=== PATIENT | female | born 1985 | race Caucasian/White ===

== ENCOUNTER 2018-07-13 12:06 | Emergency (ER) | payer OTHER, MEDICAID ==
[~2018-07-13] VITALS: Ht 165.1 cm; Wt 72.6 kg
[~2018-07-13 12:06] MED LIST: AUGMENTIN 875875 MG PO; BACTRIM 400-801 EACH; BACTRIM DS TAB1 EACH PO; BENTYL20 MG PO; CLONAZEPAM; COMPAZINE10 M1 PO; DARVOCET-N 1001 EACH PO; FLEXERIL PO; FLONASE 0.05%50 MCG NS; IBUPROFEN 800800 MG PO; IRON325; LORTAB 5 MG/5001 TA1 PO; MEDROL DOSPAK21 TAB PO; MYLICON DR40 MG/0.1 PO; NORCO 5-325 TA1 EACH PO; NORFLEX100 MG PO; PENICILLIN VK500 M1 PO; PHENERGAN 25 MG25 M1 PO; PREDNISONE 10 M10 MG PO; PRENATAL; PREVACID15 MG PO; ULTRAM 50MG TAB50 MG PO; VIBRAMYCIN 100100 MG PO; ZANTAC
[2018-07-13 12:53] LABS: ABSOLUTE EOSINOPHILS 0.1 thou/uL (0.0-0.7); ABSOLUTE LYMPHOCYTES 1.3 thou/uL (0.8-5.3); ABSOLUTE MONOCYTES 0.3 thou/uL (0.0-1.2); ABSOLUTE NEUTROPHILS 3.2 thou/uL (1.6-8.1); BASOPHILS 0.7 %; EOSINOPHILS 2.2 %; HEMATOCRIT 37.2 % (37.0-47.0); HEMOGLOBIN 12.7 gm/dL (12.0-15.0); LYMPHOCYTES 27.3 %; MCH 30.7 pg (26.0-34.0); MCHC 34.1 g/dL (28.0-37.0); MONOCYTES 5.2 %; MPV 7.7 fl. (7.2-11.1); NUCLEATED RBCS 0 /100WBC; PLATELET COUNT* 233 thou/uL (150-400); POLYS 64.6 %; RBC 4.13 mil/uL (4.20-5.00); RDW-CV 12.8 % (10.5-14.5); WBC 4.9 thou/uL (4.0-11.0)
[2018-07-13 13:00] LABS: CALCIUM 8.9 mg/dL (8.5-10.1); CREATININE 0.7 mg/dL (0.6-1.3); POTASSIUM 3.4 mmol/L (3.5-5.1)
[2018-07-13 13:04] LABS: APTT 28.3 Seconds (25.0-31.3); PROTIME 10.7 Seconds (9.20-11.50)
[2018-07-13 13:05] LABS: ALBUMIN 3.6 g/dL (3.4-5.0); TOTAL BILIRUBIN 0.5 mg/dL (<0.1-1.0); TOTAL PROTEIN 7.2 g/dL (6.4-8.2)
[2018-07-13 13:24] VITALS: BP 118/61
== END 2018-07-13 13:25 | disposition home or self-care (01) ==
LOC: M.ERS 12:06
PROVIDERS: Family Medicine
DX: S80.12XA Contusion of left lower leg, initial encounter (principal); Z90.49 Acquired absence of other specified parts of digestive tract; Z98.890 Other specified postprocedural states; F17.210 Nicotine dependence, cigarettes, uncomplicated; Z88.1 Allergy status to other antibiotic agents; Z88.2 Allergy status to sulfonamides; Z88.5 Allergy status to narcotic agent; Z88.8 Allergy status to other drugs, medicaments and biological substances; X58.XXXA Exposure to other specified factors, initial encounter; Y93.89 Activity, other specified; Y92.89 Other specified places as the place of occurrence of the external cause; Y99.8 Other external cause status